=== PATIENT | male | born 1980 | race Hispanic/Latino ===

== ENCOUNTER 2021-07-27 16:02 | Emergency (ER) | payer BC ==
[~2021-07-27] VITALS: Ht 167.6 cm; Wt 80.7 kg
[2021-07-27] MEDS ORDERED: CASIRIVIMAB/IMDEVIMAB 10 ML in SODIUM CHLORIDE 0.9% 100 ML IV ONE (16:15)
== END 2021-07-27 16:46 | disposition home or self-care (01) ==
LOC: ER 16:08
DX: U07.1 COVID-19 (principal); R05.9 Cough, unspecified; R53.81 Other malaise
CPT/HCPCS: 99283; J7050